=== PATIENT | male | born 1985 | race Caucasian/White ===

== ENCOUNTER 2017-02-11 20:03 | Emergency (ER) | payer OTHER ==
[2017-02-11 20:27] VITALS: TEMP 98.3; O2SAT 100
[2017-02-11] MEDS ORDERED: LORAZEPAM 0.5 MG TAB PO ONE (20:31)
[2017-02-11] MEDS ORDERED: LORAZEPAM 0.5 MG TAB ONE (20:33)
[2017-02-11 20:49] LABS: BASOPHILS % (AUTO) 2 % (0-3); EOSINOPHILS % (AUTO) 3 % (0-9); HEMATOCRIT 50 % (39-53); MEAN CORPUSCULAR HGB CONC 35.6 gm/dl (32.0-36.0); MEAN CORPUSCULAR VOLUME 87 fL (80-100); MONOCYTES % (AUTO) 7.3 % (0-12); NEUTROPHILS % (AUTO) 54.9 % (37-80)
[2017-02-11 20:56] LABS: APPEARANCE,URINE Clear; BILIRUBIN,URINE NEGATIVE (NEGATIVE); COLOR,URINE Yellow; GLUCOSE, URINE (UA) NEGATIVE (NEGATIVE); KETONES,URINE NEGATIVE (NEGATIVE); LEUKOCYTE ESTERASE ,URINE NEGATIVE (NEGATIVE); NITRATE,URINE NEGATIVE (NEGATIVE); OCCULT BLOOD,URINE NEGATIVE (NEG-TRACE); UROBILINOGEN,URINE 0.2 (0.2-1.0 EU)
[2017-02-11 21:10] LABS: AMPHETAMINES POSITIVE (NEGATIVE); METHADONE NEGATIVE (NEGATIVE); OPIATES(OP13) NEGATIVE (NEGATIVE); OXYCODONE(OXY) NEGATIVE (NEGATIVE); PROPOXYPHENE(PPX) NEGATIVE (NEGATIVE); RBC,URINE 0-1 (0-3AV/HPF); TRICYCLIC ANTIDEPRESSANTS NEGATIVE (NEGATIVE); WBC,URINE 0-2 (0-5AV/HPF)
[2017-02-11 21:17] LABS: ALBUMIN 4.2 gm/dl (3.4-5.0); CALCIUM 8.4 mg/dl (8.5-10.1); POTASSIUM 4.1 mMol/L (3.5-5.1); THYROID STIMULATING HORMONE 4.001 uIU/ml (0.358-3.740)
[2017-02-11 22:37] VITALS: BP 143/85; PULSE 87; RESP 16
== END 2017-02-11 22:40 | disposition short-term general hospital (02) | DRG 914 ==
LOC: ED 20:03
DX: T14.91 Suicide attempt (principal); X83.8XXA Intentional self-harm by other specified means, initial encounter
CPT/HCPCS: 36415; 80053; 80305; 80307; 81001; 84443; 85025; 99282

== ENCOUNTER 2017-03-12 09:55 | Emergency (ER) | payer OTHER ==
[2017-03-12 09:55] VITALS: O2SAT 100
[2017-03-12 10:12] VITALS: BP 129/85; PULSE 75; RESP 20; TEMP 98.4
== END 2017-03-12 11:20 | disposition home or self-care (01) | DRG 159 ==
LOC: ED 09:55
DX: K08.89 Other specified disorders of teeth and supporting structures (principal)
CPT/HCPCS: 99282; 99283

== ENCOUNTER 2017-06-14 18:15 | Emergency (ER) | payer SELFPAY ==
[2017-06-14 19:24] VITALS: RESP 22; TEMP 97.3
[2017-06-14 19:32] VITALS: BP 116/74; PULSE 54; O2SAT 95
== END 2017-06-14 19:16 | disposition home or self-care (01) | DRG 607 ==
LOC: ED 18:15
DX: L29.9 Pruritus, unspecified (principal); R06.02 Shortness of breath
CPT/HCPCS: 71010; 99283

== ENCOUNTER 2018-06-16 07:13 | Day surgery (SDC) | payer MEDICAID, OTHER ==
[2018-06-16] MEDS ORDERED: PROPOFOL 500 MG/50 ML EMU IV ONE (07:57)
[2018-06-16 08:56] VITALS: TEMP 96.5
[2018-06-16 09:12] VITALS: RESP 18
[2018-06-16 09:20] VITALS: BP 108/69; PULSE 42; O2SAT 100
== END 2018-06-16 09:47 | disposition home or self-care (01) | DRG 392 ==
LOC: SURG 07:13
PROVIDERS: ATTEND Internal Medicine Gastroenterology
DX: K52.9 Noninfective gastroenteritis and colitis, unspecified (principal); K63.3 Ulcer of intestine; K64.8 Other hemorrhoids; D12.8 Benign neoplasm of rectum
CPT/HCPCS: J2704